=== PATIENT | female | born 1960 | race Caucasian/White ===

== ENCOUNTER 2019-10-19 06:34 | Emergency (ER) | payer MEDICARE, SELFPAY ==
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
[2019-10-19 06:42] VITALS: BP 127/92; PULSE 90; RESP 18; TEMP 36.6; O2SAT 100
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
--- NOTE | 2019-10-19 07:10 | PC.NURSE ---
Pt to XRAY via stretcher.
[2019-10-19] MEDS: IBUPROFEN 600 MG TABLET PO (07:14)
[2019-10-19 09:08] VITALS: BP 139/91; PULSE 62; RESP 15; O2SAT 98
== END 2019-10-19 09:09 | disposition home or self-care (01) ==
PROVIDERS: Emergency Provider Emergency Medicine; PCP Internal Medicine
DX: S83.91XA Sprain of unspecified site of right knee, initial encounter (principal); M17.11 Unilateral primary osteoarthritis, right knee; R93.6 Abnormal findings on diagnostic imaging of limbs; Z21 Asymptomatic human immunodeficiency virus [HIV] infection status; X50.9XXA Other and unspecified overexertion or strenuous movements or postures, initial encounter
CPT/HCPCS: 73564; 99283; A9270

== ENCOUNTER 2019-12-27 17:07 | Emergency (ER) | payer OTHER, MEDICARE, SELFPAY ==
--- NOTE | ~2019-12-27 | CT_ITS ---
EXAMINATION: CT brain wo con INDICATION: Headache COMPARISON: None TECHNIQUE: Standard unenhanced head CT. The dose-length product (DLP) was 681.00 mGy-cm. The mA was a djusted according to patient size. Iterative reconstruction technique was employed. FINDINGS: There is no intracranial hemorrhage, acute infarction, or abnormal mass lesion. The ventric les are normal. There is no abnormal mass effect or midline shift. The torres-white matter differentiat ion is normal. The basal cisterns are patent. The orbits are normal. The paranasal sinuses, mastoids and calvarium are normal. IMPRESSION: 1. No acute intracranial abnormality. Reviewed, dictated and finalized at location A.
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
--- NOTE | ~2019-12-27 | CT_ITS ---
EXAMINATION: CT thoracic spine wo con DATE: 12/27/2019 18:28 INDICATION: Back pain TECHNIQUE: Computed tomography (CT) of the thoracic spine was performed without intravenous contrast. The dose-length product (DLP) was 1497.94 mGy-cm. Automated exposure control and iterative reconstru ction technique were employed. COMPARISON: None FINDINGS: Bone alignment is normal. There is mild irregularity in the inferior endplate of the T11 ve rtebral body. The prevertebral soft tissues are normal. The vertebral body heights and alignment are normal. There is mild loss of intervertebral disc space height at multiple levels. There are multiple pulmonary nodules scattered throughout the visualized lungs which measure up to 8 mm in the left upp er lobe. IMPRESSION: 1. Possible inferior endplate fracture of the T11 vertebral body. 2. Multiple pulmonary nodules scattered throughout the lungs measuring up to 8 mm which could reflect Kaposi's sarcoma. Reviewed, dictated and finalized at location A.
[2019-12-27 17:10] VITALS: BP 142/79; PULSE 90; RESP 16; TEMP 36.6; O2SAT 98
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
--- NOTE | 2019-12-27 18:40 | PC.NURSE ---
Patient requesting pain medication for headache as well as reporting that she feels very nauseated. EDPA notified. Emesis bag provided to the patient.
[2019-12-27] MEDS: ONDANSETRON HCL ODT 4 MG TABLET PO (18:51)
[2019-12-27] MEDS: KETOROLAC (*BKC) 60 MG/2 ML VIAL 30 MG IM (18:51)
[2019-12-27 18:55] VITALS: BP 128/86; PULSE 83; RESP 18; TEMP 36.6; O2SAT 97
[2019-12-27 20:42] VITALS: BP 127/90; PULSE 81; RESP 18; TEMP 36.4; O2SAT 96
== END 2019-12-27 20:42 | disposition home or self-care (01) ==
PROVIDERS: Emergency Provider Emergency Medicine; PCP Internal Medicine
DX: S29.012A Strain of muscle and tendon of back wall of thorax, initial encounter (principal); S16.1XXA Strain of muscle, fascia and tendon at neck level, initial encounter; Z21 Asymptomatic human immunodeficiency virus [HIV] infection status; V49.40XA Driver injured in collision with unspecified motor vehicles in traffic accident, initial encounter; R91.8 Other nonspecific abnormal finding of lung field
CPT/HCPCS: 70450; 72125; 72128; 96372; 99284; A9270; J1885; L0140

== ENCOUNTER 2020-10-20 03:18 | Emergency (ER) | payer MEDICARE, SELFPAY ==
[2020-10-20 03:20] VITALS: BP 134/88; PULSE 71; RESP 18; TEMP 36.3; O2SAT 97
[2020-10-20 03:32] VITALS: BP 126/86; PULSE 68; RESP 15; TEMP 36.8; O2SAT 98
--- NOTE | 2020-10-20 03:47 | ED.GENADULT ---
HPI - General Adult General Chief complaint: Extremity Injury, Lower Stated complaint: left thigh/popliteal pain Time Seen by Provider: 10/20/20 03:33 History of Present Illness HPI narrative: Patient 60-year-old female presents the emergency department with chief complaint of left lower extremity pain. The patient reports she has history of sarcoidosis also has history of HIV. The patient reports started having pain in her left lower back then radiates down her left leg the patient states today she became concerned where she is having pain in the popliteal fossa area. The patient reports feels like her leg may be a type swollen and reports she was concerned that she may have a DVT. Patient denies shortness of breath or chest pain Related Data Home Medications Medication Instructions Recorded Confirmed betjzlhqc-fzgpbtxo-zswumeq ala 1 tablet PO DAILY 10/19/19 [Biktarvy] dexlansoprazole [Dexilant] mg 10/19/19 levothyroxine 10/19/19 Bactrim 10/20/20 dexlansoprazole [Dexilant] mg 10/20/20 emtricitabine-tenofovir (TDF) tablet 10/20/20 [Truvada] pravastatin 10/20/20 prednisone 10/20/20 Allergies Allergy/AdvReac Type Severity Reaction Status Date / Time cobicistat [From Genvoya] AdvReac Hives Verified 10/20/20 03:48 elvitegravir [From Genvoya] AdvReac Hives Verified 10/20/20 03:48 emtricitabine [From Genvoya] AdvReac Hives Verified 10/20/20 03:48 hydromorphone [From Dilaudid] AdvReac Hives Verified 10/20/20 03:46 levofloxacin [From Levaquin] AdvReac Hives Verified 10/20/20 03:47 meperidine [From Demerol] AdvReac Hives Verified 10/20/20 03:47 tenofovir [From Genvoya] AdvReac Hives Verified 10/20/20 03:48 Review of Systems Review of Systems: Narrative: A 10 system review of systems was completed on the patient and is negative except for what is stated in the HPI. Nursing and ancillary documentation was reviewed. [facility] Past Medical History Medical History HIV (human immunodeficiency virus infection) Family History Family History Sibling Hypertension Family history of malignant neoplasm of brain Family history of heart disease in male family member before age 55 Acute myocardial infarction Mother Family history of Alzheimer's disease Family history of diabetes mellitus in first degree relative Grandparent Family history of malignant neoplasm of ovary Other Family history of allergic disorder Family history of cardiovascular disease Family history of malignant neoplasm Family history of malignant neoplasm of bone Social History Social History Smoking status: Never smoker Alcohol intake: never Exam Narrative: Exam Narrative: GENERAL: Well-appearing, well-nourished, and in no acute distress. HEAD: Normocephalic, atraumatic. EYES: PERRLA and EOMI. ENT: Nares clear, no rhinorrhea or epistaxis. Mucous membranes moist. NECK: Supple. CHEST: Clear to auscultation. No respiratory distress. HEART: Regular rate and rhythm. No murmur heard. Normal peripheral pulses. ABDOMEN: Soft, nontender, nondistended, normal active bowel sounds. EXTREMITIES: Normal range of motion. No edema. SKIN: Warm, dry, no rash. NEURO: No focal deficits. Alert and oriented x3. PSYCH: Normal mood and affect. Course Vital Signs Vital signs: Vital Signs Temperature 36.3 C L 10/20/20 03:20 Pulse Rate 71 10/20/20 03:20 Respiratory Rate 18 10/20/20 03:20 Blood Pressure 134/88 10/20/20 03:20 Pulse Oximetry 97 10/20/20 03:20 Temperature 36.8 C 10/20/20 03:32 Pulse Rate 68 10/20/20 03:32 Respiratory Rate 15 10/20/20 03:32 Blood Pressure 126/86 10/20/20 03:32 Pulse Oximetry 98 10/20/20 03:32 Medical Decision Making Vital Signs Vital Signs: Vital Signs Temperature 36.3 C L 07
[2020-10-20 04:09] LABS: Basophils Percent Auto 0.2 % (0.2-1.2); Eosinophils Percent Auto 0.6 % (0-4.4); Hematocrit 39.7 % (37.0-47.0); Hemoglobin 12.8 g/dL (12.0-15.0); Immature Granulocyte Absolute 0.04 K/mm3 (0.00-0.031); Immature Granulocyte Percent A 0.6 % (0-0.5); Lymphocytes Absolute Auto 1.03 K/mm3 (0.9-3.2); Lymphocytes Percent Auto 16.6 % (18.3-44.2); Mean Corpuscular HGB Conc 32.2 g/dl (32-36); Mean Corpuscular Hemoglobin 30.7 pg (26-34); Mean Corpuscular Volume 95.2 fl (80-100); Mean Platelet Volume 9.6 fl (7.4-10.4); Monocytes Absolute Auto 0.5 K/mm3 (0.1-0.6); Monocytes Percent Auto 7.7 % (2.6-8.5); Neutrophils Absolute Auto 4.6 K/mm3 (1.3-6.7); Neutrophils Percent Auto 74.3 % (45.5-73.1); Platelet Count Result 253 k/mm3 (150-375); Red Blood Count 4.17 M/mm3 (4.2-5.4); Red Cell Distribution Width 13.8 % (11.5-14.5); White Blood Count 6.2 K/mm3 (4.5-10.0)
[2020-10-20 04:20] LABS: INR 0.9; Prothrombin Time 12.4 Seconds (11.1-14.7)
[2020-10-20 04:21] LABS: Alanine Aminotransferase 19 U/L (4-35); Albumin Level 4.2 g/dL (3.5-5.1); Alkaline Phosphatase 94 U/L (38-126); Anion Gap 7 mmol/L (8-16); Aspartate Amino Transferase 25 U/L (14-36); Bilirubin,Total 0.4 mg/dL (0.2-1.3); Blood Urea Nitrogen 18 mg/dL (7-17); Calcium 9.4 mg/dL (8.4-10.2); Carbon Dioxide 24 mmol/L (22-30); Chloride 104 mmol/L (98-107); Estimated CRCL calculation 90 ml/min; Estimated Glomerular Filt Rate > 60; Glucose 105 mg/dL (65-110); Potassium 4.1 mmol/L (3.4-5.0); Sodium 135 mmol/L (137-145)
[2020-10-20 04:24] LABS: D Dimer 0.27 ug/mL (<0.48)
[2020-10-20 04:32] LABS: Troponin I < 0.012 ng/mL (0.000-0.034)
[2020-10-20 04:46] VITALS: BP 130/86; PULSE 58; RESP 15; O2SAT 98
[2020-10-20 04:58] VITALS: BP 128/85; PULSE 65; RESP 17; O2SAT 99
== END 2020-10-20 05:02 | disposition home or self-care (01) ==
PROVIDERS: Emergency Provider Emergency Medicine; PCP Family Medicine
DX: M79.605 Pain in left leg (principal); Z21 Asymptomatic human immunodeficiency virus [HIV] infection status; D86.9 Sarcoidosis, unspecified
CPT/HCPCS: 36415; 80053; 84484; 85025; 85380; 85610; 99283

== ENCOUNTER 2021-05-17 14:05 | Emergency (ER) | payer MEDICARE, MEDICAID, SELFPAY ==
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
[2021-05-17 14:07] VITALS: BP 139/84; PULSE 66; RESP 18; TEMP 36.1; O2SAT 99
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
[2021-05-17 15:42] VITALS: BP 136/74; PULSE 70; RESP 16; TEMP 36.3; O2SAT 98
== END 2021-05-17 15:44 | disposition home or self-care (01) ==
PROVIDERS: Emergency Provider Emergency Medicine
DX: S29.019A Strain of muscle and tendon of unspecified wall of thorax, initial encounter (principal); S16.1XXA Strain of muscle, fascia and tendon at neck level, initial encounter; Z21 Asymptomatic human immunodeficiency virus [HIV] infection status; K11.9 Disease of salivary gland, unspecified; M47.812 Spondylosis without myelopathy or radiculopathy, cervical region; K44.9 Diaphragmatic hernia without obstruction or gangrene; R93.7 Abnormal findings on diagnostic imaging of other parts of musculoskeletal system; M47.814 Spondylosis without myelopathy or radiculopathy, thoracic region; V49.40XA Driver injured in collision with unspecified motor vehicles in traffic accident, initial encounter
CPT/HCPCS: 72125; 72128; 99284

== ENCOUNTER → 2022-03-07 10:17 | Outpatient (CLI) | payer MEDICARE, MEDICAID, SELFPAY ==
--- NOTE | ~2022-03-07 | US_ITS ---
EXAMINATION: US soft tissue head and neck DATE: 03/07/2022 10:41 INDICATION: Other diseases of salivary glands. TECHNIQUE: Multiple grayscale and Doppler ultrasound images of the right parotid gland were obtained. COMPARISON: CT cervical spine 05/17/2021, head CT 12/27/2019, brain MRI 05/07/2012 FINDINGS: There are normal lymph nodes in the right parotid gland. There is no abnormal mass. IMPRESSION: 1. No abnormal mass in right parotid gland. Reviewed, dictated and finalized at location E. D MECHANIC
== END ==
PROVIDERS: PCP Otolaryngology; Visit Provider Otolaryngology
DX: K11.8 Other diseases of salivary glands (principal)
CPT/HCPCS: 76536

== ENCOUNTER 2022-06-15 19:35 | Emergency (ER) | payer MEDICARE, MEDICAID, SELFPAY ==
[2022-06-15 19:37] VITALS: BP 139/79; PULSE 93; RESP 16; TEMP 36.4; O2SAT 100
--- NOTE | 2022-06-15 21:00 | ED.ANIMALBIT ---
HPI - Animal Bite General Chief Complaint: Animal Bite Stated Complaint: feral cat bite; sinus infection Time Seen by Provider: 06/15/22 20:42 History of Present Illness HPI narrative: Patient is a 62-year-old female here for evaluation of a cat bite to her left third digit. Patient states that she was working out on her porch and there was a cat on the porch with her all day. She is unsure who owns the cat but the cat was wearing a collar and acting normally all day. Patient states that she reached down to pet the cat and when she reached his backside the cat turned around and bit her finger. The cat was acting normally afterwards and then walked off. She is unsure of her last tetanus shot. She washed the wound out immediately with soap and water and dressed it with triple antibiotic ointment but states that her finger now appears swollen. No streaking up the arm, erythema, fevers or chills or difficulty moving the digit. Related Data Home Medications Medication Instructions Recorded Confirmed bictegravir 50 mg-emtricitabine 1 tablet PO DAILY 10/19/19 03/04/22 200 mg-tenofovir alafenam 25 mg tablet (Biktarvy) dexlansoprazole 60 mg mg 10/19/19 03/04/22 capsule,biphase delayed release (Dexilant) levothyroxine 75 mcg tablet 10/19/19 03/04/22 dexlansoprazole 60 mg mg 10/20/20 03/04/22 capsule,biphase delayed release (Dexilant) pravastatin 10 mg tablet 10/20/20 03/04/22 prednisone 20 mg tablet 10/20/20 03/04/22 folic acid 1 mg tablet 1 mg PO DAILY 03/04/22 03/04/22 metoprolol succinate 50 mg 50 mg PO DAILY 03/04/22 03/04/22 tablet,extended release 24 hr Allergies Allergy/AdvReac Type Severity Reaction Status Date / Time cobicistat [From Genvoya] AdvReac Hives Verified 06/15/22 19:35 elvitegravir [From Genvoya] AdvReac Hives Verified 06/15/22 19:35 emtricitabine [From Genvoya] AdvReac Hives Verified 06/15/22 19:35 hydromorphone [From Dilaudid] AdvReac Hives Verified 06/15/22 19:35 levofloxacin [From Levaquin] AdvReac Hives Verified 06/15/22 19:35 meperidine [From Demerol] AdvReac Hives Verified 06/15/22 19:35 tenofovir [From Genvoya] AdvReac Hives Verified 06/15/22 19:35 Review of Systems Review of Systems: Gen.: Denies fevers or chills Eyes: Denies eye pain or visual change ENT: Denies congestion Respiratory: Denies shortness of breath or cough CV: Denies chest pain or palpitations GI: Denies abdominal pain nausea, emesis or diarrhea denies burning, urgency, frequency or hematuria Musculoskeletal: Denies back pain or muscle pain Neuro: Denies numbness, tingling, weakness or focal weakness Skin: Reports cat bite Except as documented, all other systems reviewed and negative [facility] Past Medical History Medical History HIV (human immunodeficiency virus infection) Family History Family History Sibling Hypertension Family history of malignant neoplasm of brain Family history of heart disease in male family member before age 55 Acute myocardial infarction Mother Family history of Alzheimer's disease Family history of diabetes mellitus in first degree relative Grandparent Family history of malignant neoplasm of ovary Other Family history of allergic disorder Family history of cardiovascular disease Family history of malignant neoplasm Family history of malignant neoplasm of bone Social History Social History (Updated 03/04/22 @ 14:04 by Tricia Watters CMA) Smoking status: Never smoker Alcohol intake: never Lack of Transportation: No Lack of Food: Never True Current Housing: I Have Housing Concerned About Future Housing: No Difficulty Paying Gas/Electric Bills: No Difficulty Paying for Meds: No Currently Unemployed: No Education: Trade/Vocational Certificate Difficulty w/ Childcare or Family Care: No Exam Narrative: [facility]
[2022-06-15 21:38] VITALS: BP 134/92; PULSE 93; RESP 17; TEMP 36.9; O2SAT 98
[2022-06-15] MEDS: AMOXICILLIN/CLAVULANATE K 875-125 MG TAB 1 TABLET PO (21:40)
[2022-06-15] MEDS: TETANUS,DIPHTHERIA,AC PERTUSSIS ADULT (0.5 ML) BOOSTRIX IM (21:40)
== END 2022-06-15 21:54 | disposition home or self-care (01) ==
PROVIDERS: Emergency Provider Physician Assistant; PCP Family Medicine Sports Medicine
DX: S61.253A Open bite of left middle finger without damage to nail, initial encounter (principal); Z23 Encounter for immunization; W55.01XA Bitten by cat, initial encounter; Y92.008 Other place in unspecified non-institutional (private) residence as the place of occurrence of the external cause
CPT/HCPCS: 90471; 90715; 99283; A9270